=== PATIENT | female | born 1985 | race Caucasian/White ===

== ENCOUNTER 2017-01-22 19:50 | Emergency (ER) | payer MEDICAID ==
[~2017-01-22] VITALS: Ht 162.6 cm; Wt 61.0 kg
[~2017-01-22 19:50] MED LIST: [UNRECOGNIZED DRUG - REMARK]
[2017-01-22 19:58] VITALS: BP 111/74
--- NOTE | 2017-01-22 20:16 | NUR ---
PT TAKEN TO BED 6
--- NOTE | 2017-01-22 20:23 | NUR ---
Dr. Bright evaluating patient at bedside.
--- NOTE | 2017-01-22 20:38 | NUR ---
31/F c/o sore throat x 1 month and congestion. Pt is AOX4, djiboutian speaking, clear speech. VSS.
[2017-01-22 20:41] VITALS: BP 111/74
--- NOTE | 2017-01-22 20:41 | NUR ---
Patient discharged with v/s stable. Written and verbal after care instructions given and explained. Patient alert, oriented and verbalized understanding of instructions. Ambulatory with steady gait. All questions addressed prior to discharge. ID band removed. Patient advised to follow up with PMD. Rx of Azithromycin 250mg given. Patient educated on indication of medication including possible reaction and side effects. Opportunity to ask questions provided and answered.
== END 2017-01-22 20:41 | disposition home or self-care (01) ==
LOC: MED 19:50
DX: J20.9 Acute bronchitis, unspecified (principal)
CPT/HCPCS: 99283

== ENCOUNTER 2018-01-25 18:52 | Emergency (ER) | payer SELFPAY ==
[~2018-01-25] VITALS: Ht 157.5 cm; Wt 59.5 kg
[2018-01-25 19:04] VITALS: BP 106/65
--- NOTE | 2018-01-25 23:10 | NUR ---
PATIENT LEFT WITHOUT BEING SEEN BY DR. SANDERS. NO FURTHER CARE PROVIDED FOR PATIENT.
== END 2018-01-25 23:10 | disposition left against medical advice (07) ==
LOC: MED 18:52
DX: J02.9 Acute pharyngitis, unspecified (principal); Z53.21 Procedure and treatment not carried out due to patient leaving prior to being seen by health care provider